=== PATIENT | male | born 1990 | race Caucasian/White ===

== ENCOUNTER 2023-04-28 15:25 | Emergency (ER) | payer OTHER ==
[~2023-04-28] VITALS: Ht 170.2 cm; Wt 66.2 kg
[2023-04-28] MEDS ORDERED: CARI350T PO (17:56)
[2023-04-28 18:06] VITALS: BP 114/78; TEMP 98.3; O2SAT 98
== END 2023-04-28 18:07 | disposition home or self-care (01) ==
LOC: ER 15:35
DX: S13.4XXA Sprain of ligaments of cervical spine, initial encounter (principal); Z87.442 Personal history of urinary calculi; V89.2XXA Person injured in unspecified motor-vehicle accident, traffic, initial encounter; Y93.89 Activity, other specified; Y92.89 Other specified places as the place of occurrence of the external cause; Y99.8 Other external cause status
CPT/HCPCS: 72050-TC